=== PATIENT | female | born 1945 | race Caucasian/White ===

== ENCOUNTER 2022-11-14 08:10 | Outpatient (CLI) | payer MEDICARE, SELFPAY ==
--- NOTE | 2022-12-06 17:56 | WPDHOMESLEEP ---
Sleep Study - Home Unattended Date of Study: 11/14/22 Ordering Provider: Valente Villanueva MD Interpreting Provider: Laura Graham MD Home Sleep Study Type: Watch PAT Height: 1.7 m Weight: 71.214 kg Body Mass Index: 24.5 Neck Circumference (inches): 12.25 [place]: 6 Reason for Sleep Study Poor quality sleep, wakes up during the night Sleep History Emmie James is a 77-year-old woman who falls asleep and wakes up 2 hours later, sometimes taking 3-4 hours to return to sleep. She has excessive daytime sleepiness at times. She does not awaken from sleep feeling short of breath. She rarely awakens at night with heartburn, belching or coughing. She never snores and others do not tell her that she does. She rarely has trouble sleeping with a cold. She does not wake up gasping for breath at night. She does not sweat excessively at night or notice her heart pounding or beating irregularly at night. She occasionally falls asleep during the day, occasionally falls asleep involuntarily but never while driving. She does not have loss of muscle tone with strong emotion. She does not have daytime difficulties due to excessive sleepiness. She does not feel paralyzed on waking or falling asleep or have vivid dreamlike scenes upon awakening or falling asleep. She does not feel afraid to go to sleep. She does not have nightmares. She occasionally remembers her dreams. She frequently has racing thoughts. She rarely feels sad or depressed. She occasionally has anxiety. She occasionally has muscular tension and notices parts of her body jerking. She occasionally kicks at night. She occasionally has crawling aching feelings. She occasionally has leg pain at night. She does not have morning jaw pain. She does not grind her teeth during sleep. She does not have pain in the day and is not awakened by pain at night. She rarely wakes up feeling stiff in the morning with sore achy muscles or pain in the neck and spine. She has insomnia. She has used melatonin to help with sleep onset. Her primary care physician has talked with her about avoiding electronics before bed especially in the middle of the night. She was advised to read a book and to return to bed when sleepy. He discussed amitriptyline 10 mg at night if she continued to have problems waking up after going to sleep. Normal bedtime is 10:00 p.m. taking a variable amount of time to fall asleep. She typically wakes twice at night, goes to the bathroom and returns to bed. Sometimes it may require 3-4 hours for her to return to sleep. If she can not return to sleep easily she will stay awaken watch television. She wakes the morning between 6 and 7:00 a.m.. Her weekend schedule is the same. She estimates getting 5-6 hours of interrupted sleep most nights. Habits: No tobacco. No caffeine, alcohol or recreational substances. She drinks decaffeinated drinks. [facility] Past Medical History Medical History Abnormal mammogram of right breast BMI 24.0-24.9, adult BMI 25.0-25.9,adult Breast cancer screening by mammogram benign microcalcifications on mammogram 10/31/2020 with recheck annually. Will mammogram 11/14/2021. Chronic left hip pain Chronic nonallergic rhinitis Colon cancer screening Normal colonoscopy 2017 with recheck in 10 years. COVID-19 (04/03/22) fully vaccinated and tested positive 04/05/2022. Decreased hearing of both ears hearing aids Hypersomnia Hypothyroidism, unspecified TSH 3.90, free T4 1.2 on 10/01/2022. Insomnia Mixed hyperlipidemia Total cholesterol 210, HDL 52, triglycerides 156, LDL 131 with ratio 4.0 on 10/01/2022. Osteopenia after menopause Overweight (BMI 25.0-29.9) Raynaud's disease without gangrene Vitamin D deficiency, unspecified Level normal at 52 on 10/01/2022. Family History Family History Mother Heart disease Fathe
[2022-12-06 18:45] VITALS: BMI 24.5
== END 2022-11-20 14:49 | disposition home or self-care (01) ==
PROVIDERS: PCP Family Medicine; Visit Provider Family Medicine
DX: G47.33 Obstructive sleep apnea (adult) (pediatric) (principal); G47.10 Hypersomnia, unspecified; G47.00 Insomnia, unspecified
CPT/HCPCS: 95800

== ENCOUNTER 2025-01-08 08:52 | Outpatient (CLI) | payer MEDICARE, SELFPAY ==
--- NOTE | ~2025-01-08 | DEXA_ITS ---
Bone Density Report Name: RUSTY MENENDEZ Age: 79 Sex: Female Ethnicity: White Date of : 1945 Indication: osteopenia; height loss; Referring Provider: VICTORINO RIVERS Study: Bone densitometry was performed. Exam Date: January 08, 2025 Accession number: [id number] Bone Density: Region BMD T-score Z-score Classification AP Spine(L1-L4) 0.864 -1.7 1.0 Osteopenia Femoral Neck (Left) 0.611 -2.1 0.2 Osteopenia Total Hip (Left) 0.631 -2.5 -0.5 Osteoporosis Femoral Neck (Right) 0.561 -2.6 -0.3 Osteoporosis Total Hip (Right) 0.644 -2.4 -0.4 Osteopenia Total Hip Mean 0.637 -2.5 -0.5 Osteopenia World Health Organization criteria for BMD impression classify patients as: Normal (T-score at or above -1.0), Osteopenia (T-score between -1.0 and -2.5), or Osteoporosis (T-score at or below -2.5). 10-year Fracture Risk: FRAX not reported because: Some T-score for Spine Total or Hip Total or Femoral Neck at or below -2.5 Previous Exams: -- Region Exam Age BMD T-score BMD Change BMD Change Date g/cm2 vs Baseline vs Previous -- AP Spine (L1-L4) 01/08/2025 79 0.864 -1.7 4.4%# 4.4%# 08/21/2002 57 0.828 -2.0 Total Hip(Left) 01/08/2025 79 0.631 -2.5 -21.9%# -21.9%# 08/21/2002 57 0.808 -1.1 Total Hip(Right) 01/08/2025 79 0.644 -2.4 -20.9%# -20.9%# 08/21/2002 57 0.813 -1.1 -- *Denotes significance at 95% confidence level, LSC for AP Spine = 0.022 g/cm2, LSC for Total Hip = 0.027 g/cm2 # Denotes dissimilar scan types or analysis methods Clinical Information Provided by Patient: Has used the following medications: Vitamin D, Calcium Patient maximum height was 67 Onset of menses at age 15 Number of children 3 Impression: The patient has osteoporosis, based on the Right Femoral Neck T-score. Unable to evaluate interval change due to the use of different scan modes. Discussion: INCREASED RISK OF FRACTURE. BONE DENSITY IS UNDESIRABLY LOW AT ONE OR MORE SKELETAL SITES, CONSISTENT WITH POSTMENOPAUSAL OSTEOPOROSIS. This patient's lowest T-score meets the World Health Organization's (WHO) criteria for osteoporosis at one or more sites (T-score -2.5 or below). In untreated patients, the risk of osteoporotic fracture increases approximately two-fold for each 1.0 SD decrease in T-score. Low bone density is not the only risk factor for fracture; also consider factors such as patient's age, frailty or poor health, risk of falling, risk of injury, previous osteoporotic fracture, family history of osteoporosis, cigarette smoking, low body weight, etc. Not everyone with low bone mineral density has osteoporosis; osteomalacia and other metabolic bone disorders should also be considered. Patients who have osteoporosis should be evaluated for specific diseases and conditions (secondary causes) that may cause or contribute to bone loss. The [place] [employer]ocrin[employer] (AACE) and National Osteoporosis Foundation (NOF) recommend pharmacologic intervention for all postmenopausal women whose T-score is in this range. The patient should follow a healthful lifestyle (good nutrition with adequate calcium and vitamin D, and appropriate weight-bearing exercise). Follow-Up: Consider a repeat BMD and Vertebral Fracture Assessment (VFA) exam in 2 years or sooner if medically necessary, to reassess this patient's status. Reported by: ASAD on 01/13/2025 8:40:00 AM. Reviewed, dictated and finalized at location A.
== END 2025-01-08 08:53 | disposition home or self-care (01) ==
LOC: MICIMG 08:53
PROVIDERS: PCP Family Medicine; Visit Provider Family Medicine
DX: M85.89 Other specified disorders of bone density and structure, multiple sites (principal); M81.0 Age-related osteoporosis without current pathological fracture; Z78.0 Asymptomatic menopausal state
CPT/HCPCS: 77080